=== PATIENT | male | born 1995 | race Caucasian/White ===

== ENCOUNTER 2024-04-08 10:02 | Emergency (ER) | payer SELFPAY ==
[~2024-04-08] VITALS: Ht 177.8 cm; Wt 63.6 kg
[2024-04-08 10:06] VITALS: TEMP 97.8
[2024-04-08] MEDS ORDERED: Lidocaine PF 2% (20 MG/ML) 5 ML VIAL ONE (11:32)
[2024-04-08] MEDS ORDERED: ZONEGRAN50 MG PO (13:59)
[2024-04-08] MEDS ORDERED: LAMICTAL150 MG PO (13:59)
[2024-04-08] MEDS ORDERED: PERCOCET 325 MG1 TA2 PO (14:00)
[2024-04-08] MEDS ORDERED: lamoTRIgine 25 MG TAB PO ONE (14:00)
[2024-04-08 14:30] VITALS: BP 109/76; PULSE 53
== END 2024-04-08 14:30 | disposition home or self-care (01) ==
LOC: COL.ER 10:02
DX: S42.251A Displaced fracture of greater tuberosity of right humerus, initial encounter for closed fracture (principal); R56.9 Unspecified convulsions; W19.XXXA Unspecified fall, initial encounter
CPT/HCPCS: A4566; J2704

== ENCOUNTER 2024-04-18 05:15 | Day surgery (SDC) | payer SELFPAY ==
[~2024-04-18] VITALS: Ht 177.8 cm; Wt 70.5 kg
[~2024-04-18 05:15] MED LIST: LAMICTAL150 MG PO; LR 1,000 ML IV SCH; PERCOCET 325 MG1 TA2 PO; ZONEGRAN50 MG PO
[2024-04-18] MEDS ORDERED: ZONEGRAN50 MG PO (06:09)
[2024-04-18 06:26] VITALS: BP 109/73; PULSE 78; TEMP 98.5
[2024-04-18] MEDS ORDERED: Lidocaine PF 2% (20 MG/ML) 5 ML VIAL ONE (06:32)
[2024-04-18] MEDS ORDERED: Ondansetron 4 MG/2 ML VIAL ONE (06:32)
[2024-04-18] MEDS ORDERED: dexAMETHasone 10 MG/ML VIAL ONE (06:32)
[2024-04-18] MEDS ORDERED: fentaNYL 50 MCG/ML 5 ML VIAL ONE (06:33)
[2024-04-18] MEDS ORDERED: Rocuronium 50 MG/5 ML Multi-Dose VIAL ONE (06:34)
[2024-04-18] MEDS ORDERED: HYDROmorphone 0.5 MG/0.5 ML SYRINGE IV PRN (07:00)
[2024-04-18] MEDS ORDERED: oxyCODONE/Acetaminophen 5-325 MG TAB PO PRN (07:00)
[2024-04-18] MEDS ORDERED: Ketorolac 15 MG/ML VIAL IV PRN (07:15)
[2024-04-18] MEDS ORDERED: Ondansetron 4 MG/2 ML VIAL IV PRN (07:15)
[2024-04-18] MEDS ORDERED: hydrALAZINE 20 MG/ML 1 ML VIAL IV PRN (07:15)
[2024-04-18] MEDS ORDERED: fentaNYL 50 MCG/ML 1 ML SYRINGE/VIAL [PACU/SDC ONLY] IV PRN (07:15)
[2024-04-18] MEDS ORDERED: HYDROmorphone 1 MG/1 ML SYRINGE [PACU/SDC ONLY] IV PRN (07:15)
[2024-04-18] MEDS ORDERED: Midazolam 2 MG/2 ML VIAL ONE (07:21)
[2024-04-18] MEDS ORDERED: HYDROmorphone 2 MG/1 ML VIAL ONE (07:36)
[2024-04-18] MEDS ORDERED: Ketorolac 30 MG/ML VIAL ONE (08:41)
[2024-04-18 10:18] VITALS: BP 120/73; PULSE 72; TEMP 97.7
[2024-04-18 10:33] VITALS: BP 116/67; PULSE 74; TEMP 97.7
[2024-04-18 11:02] VITALS: BP 115/81; PULSE 69
--- NOTE | 2024-04-18 12:07 | NUR ---
1015- RECEIVED REPORT FROM TESSIE WOOD. 1018- PATIENT BACK FROM PACU. MILD COMPLAINTS OF PAIN. MONITORS PLACED AND VS OBTAINED. PATIENT TOLERATING WATER. MOTHER AT BEDSIDE. 1033- PATIENT REQUESTING SPRITE. VS OBTAINED. 1102- TOLERATING SPRITE. REQUESTS JELLO. STATES PAIN IS A 4/10. PATIENT AGREEABLE TO WAIT TO TAKE PAIN MEDICATION UNTIL CLOSER TO DISCHARGE. 1120- IV REMOVED. 1121- PERCOCET GIVEN AND PATIENT INSTRUCTED TO GET DRESSED. 1140- DISCHARGE TEACHING DONE WITH PATIENT AND FATHER AT BEDSIDE. ANSWERED ALL QUESTIONS IN FULL. 1145- PATIENT DISCHARGED FROM HOSPITAL VIA WHEELCHAIR TO PRIVATE VEHICLE DRIVEN BY PATIENTS FATHER.
[2024-04-18 14:14] VITALS: BP 117/85; PULSE 76; TEMP 97.6
== END 2024-04-18 11:45 ==
LOC: SDCO 05:15
DX: S42.291A Other displaced fracture of upper end of right humerus, initial encounter for closed fracture (principal); S42.251A Displaced fracture of greater tuberosity of right humerus, initial encounter for closed fracture; Z87.891 Personal history of nicotine dependence; X58.XXXA Exposure to other specified factors, initial encounter; Y93.9 Activity, unspecified; Y92.9 Unspecified place or not applicable
CPT/HCPCS: A4619; A6197; C1713; J1100; J1170; J1885; J2250; J2405; J2704; J3010; J7120